=== PATIENT | female | born 1995 | race Caucasian/White ===

== ENCOUNTER → 2019-02-11 | Outpatient (CLI) | payer OTHER ==
[2019-02-11 18:39] LABS: BASO % 0.3 % (0.0-1.0); EOS # 0.2 10^3/uL (0.0-0.5); EOS % 1.3 % (0.0-3.0); HEMATOCRIT 39.4 % (36.0-47.0); HEMOGLOBIN 12.8 g/dl (12.0-15.5); LYMPH # 2.8 10^3/uL (1.5-5.0); LYMPH % 24.1 % (24.0-44.0); MEAN CORPUSCULAR HEMOGLOBIN 29.4 pg (27.0-33.0); MEAN CORPUSCULAR HGB CONC 32.5 g/dl (32.0-36.5); MEAN CORPUSCULAR VOLUME 90.4 fl (80.0-96.0); MONO # 0.9 10^3/uL (0.0-0.8); MONO % 8.2 % (0.0-5.0); NEUTROPHILS # 7.5 10^3/uL (1.5-8.5); NEUTROPHILS % 65.8 % (36.0-66.0); PLATELET COUNT, AUTOMATED 265 10^3/uL (150-450); RED BLOOD COUNT 4.36 10^6/uL (4.00-5.40); WHITE BLOOD COUNT 11.4 10^3/uL (4.0-10.0)
[2019-02-11 19:06] LABS: FREE THYROXINE INDEX 3.7 % (1.3-4.8); T UPTAKE 25 % (30-39); THYROID STIMULATING HORMONE 0.871 uIU/ML (0.358-3.740); THYROXINE (T4) 14.8 UG/DL (4.5-12.0)
[2019-02-11 19:19] LABS: RUBELLA IgG QUALITATIVE IMMUNE (IMMUNE)
[2019-02-11 19:48] LABS: HIV 1&2 SCREEN CENTAUR NEGATIVE (NEGATIVE)
[2019-02-13 11:11] LABS: HEPATITIS C VIRUS ABY INDEX 0.1 INDEX (<0.8)
== END ==
LOC: M SMT 14:19
PROVIDERS: ATTEND Advanced Practice Midwife
DX: Z34.01 Encounter for supervision of normal first pregnancy, first trimester (principal); Z3A.10 10 weeks gestation of pregnancy

== ENCOUNTER → 2019-03-13 | Outpatient (REF) | payer OTHER ==
[2019-03-13 18:58] LABS: CHLAMYDIA DNA AMPLIFICATION POSITIVE (NEGATIVE); GC DNA AMPLIFICATION NEGATIVE (NEGATIVE)
== END ==
LOC: M LAB REF 16:53
PROVIDERS: ATTEND Advanced Practice Midwife
DX: Z34.82 Encounter for supervision of other normal pregnancy, second trimester (principal); Z3A.00 Weeks of gestation of pregnancy not specified

== ENCOUNTER → 2019-04-16 | Outpatient (CLI) | payer OTHER ==
--- NOTE | 2019-04-16 13:20 | REP ---
Clinical: Anatomical evaluation. Comparison: None . Findings: Examination demonstrates a single live intrauterine in cephalic presentation. motion is identified by technologist. Placenta is noted posterior/fundal and grade I without evidence for placenta previa or abruption. Amniotic fluid volume is normal. Cervix measures 3.3 cm in length and appears closed. Nuchal cord cannot be excluded. Gestational age by LMP 20 weeks 3 days with ADRIAN 08/31/2019 . Gestational age by current measurements 19 weeks 4 days with ADRIAN 09/06/2019 . FHR equals 158 beats per minute. BPD 4.5 cm 19 weeks 3 days HC 16.5 cm 19 weeks 2 days AC 13.7 cm 19 weeks 1 day FL 3.2 cm 20 weeks 0 days HL 3.1 cm 20 weeks 1 day HC/AC ratio 1.21 Estimated weight 298 grams ( 18th percentile). Anatomical assessment demonstrates normal structures including cranium, choroid plexus, cavum, lungs, four-chamber heart/ventricular outflow tracts, diaphragm, stomach, cord insertion/three-vessel cord, kidneys/bladder, spine, and extremities. Impression: 1. Single live intrauterine in cephalic presentation demonstrating appropriate interval growth. 2. Nuchal cord cannot be excluded. 3. Limited evaluation of the posterior fossa and facial features may warrant reevaluation and follow-up. Electronically Signed by Roger Tyler MD 04/16/2019 01:11 P
== END ==
LOC: M RAD 12:03
PROVIDERS: ATTEND Obstetrics & Gynecology
DX: Z34.82 Encounter for supervision of other normal pregnancy, second trimester (principal); Z3A.19 19 weeks gestation of pregnancy

== ENCOUNTER → 2019-06-03 | Outpatient (CLI) | payer OTHER ==
--- NOTE | 2019-06-04 02:55 | REP ---
Clinical: Anatomical evaluation. Comparison: 04/16/2019 . Findings: Examination demonstrates a single live intrauterine in cephalic presentation. motion is identified by technologist. Placenta is noted posterior and grade I without evidence for placenta previa or abruption. Amniotic fluid volume is normal. Cervix measures 3.2 cm in length and appears closed. No evidence for nuchal cord. Gestational age by LMP 27 weeks 2 days with ADRIAN 08/31/2019 . Gestational age by first US 27 weeks 2 days with ADRIAN 08/31/2019 . FHR equals 146 beats per minute. Estimated weight 908 grams ( 18th percentile). Anatomical assessment demonstrates normal structures including cranium, choroid plexus, cavum, cerebellum/posterior fossa, facial features, lungs, four-chamber heart/ventricular outflow tracts, diaphragm, stomach, cord insertion/three-vessel cord, kidneys/bladder, spine, and extremities. Impression: Single live intrauterine in cephalic presentation demonstrating appropriate interval growth. In conjunction with prior examination anatomical assessment is complete and normal.
== END ==
LOC: M WHC 09:01
PROVIDERS: ATTEND Advanced Practice Midwife
DX: Z34.92 Encounter for supervision of normal pregnancy, unspecified, second trimester (principal); Z3A.27 27 weeks gestation of pregnancy

== ENCOUNTER → 2019-06-12 | Outpatient (CLI) | payer OTHER ==
[2019-06-12 18:38] LABS: HEMATOCRIT 36.6 % (36.0-47.0); HEMOGLOBIN 11.4 g/dl (12.0-15.5); MEAN CORPUSCULAR HEMOGLOBIN 28.6 pg (27.0-33.0); MEAN CORPUSCULAR HGB CONC 31.1 g/dl (32.0-36.5); PLATELET COUNT, AUTOMATED 277 10^3/uL (150-450); RED BLOOD COUNT 3.98 10^6/uL (4.00-5.40); WHITE BLOOD COUNT 13.2 10^3/uL (4.0-10.0)
== END ==
LOC: M PLALAB 11:51
PROVIDERS: ATTEND Advanced Practice Midwife
DX: Z34.92 Encounter for supervision of normal pregnancy, unspecified, second trimester (principal)

== ENCOUNTER → 2019-08-05 | Outpatient (REF) | payer OTHER | LOC: M LAB REF 16:55 | PROVIDERS: ATTEND Advanced Practice Midwife | DX: Z36.85 Encounter for antenatal screening for Streptococcus B (principal) ==

== ENCOUNTER → 2019-08-05 | Outpatient (REF) | payer OTHER | LOC: M PLALAB 14:31 | PROVIDERS: ATTEND Advanced Practice Midwife | DX: Z34.83 Encounter for supervision of other normal pregnancy, third trimester (principal) ==

== ENCOUNTER 2019-09-11 15:28 | Inpatient (IN) | payer OTHER ==
[~2019-09-11] VITALS: Ht 167.6 cm; Wt 119.7 kg
[2019-09-11] MEDS ORDERED: TUMS750C5 PO (15:57)
[2019-09-11] MEDS ORDERED: LACTATED RINGER'S 1000 ML IV STA (16:19)
--- NOTE | 2019-09-11 16:35 | HPEPDOC ---
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 Past Medical History Medical History anemia Surgical History: Other (dental) Family History Significant Family History: Cancer, Other (anemia, thyroid disease, lupus) Social History Marital Status: Single Family situation: Spouse/partner home Psychosocial History: No pertinent psych hx * Smoker: non-smoker Alcohol: Denies Drugs: denies Abuse Violence Screening Have you been hit/kicked/slapp: No Have you been sexually assault: No Imunizations Tdap status: current Allergies Coded Allergies: wool (Verified Allergy, Mild, 09/11/19) HIVES Medications Scheduled PRN Calcium Carbonate (Tums) 300 Mg Tab.chew, 1 TAB PO Q6HP PRN for INDIGESTION Physical Examination Physical Examination GENERAL: Alert and oriented times three. BREAST: . ABDOMEN: Gravid and non-tender to touch. FETUS: Is vertex (VTX) by sterile vaginal examination (SVE), fetus is vertex (VTX) by Taj. HEART RATE: Regular rate and rhythm. LUNGS: Clear to auscultation (CTA). EXTREMITIES: No edema. No clonus. Deep tendon reflexes (DTRs) + 2. Laboratory Data 24H [facility] Laboratory Tests 2 09/11/19 15:47: Serology Scanned Report Hepatitis B Testing Pertinent Laboratoy Data Blood Type: O+ RBC Antibody Screen: Negative HIV: Negative Hepatitis B: Negative Hepatitis C: Negative Rapid Plasma Reagin: Nonreactive Rubella: Immune Chlamydia/Gonorrhea: Positive (no WILL documented) Group B Streptococcus: Negative Quad Screen Test: Declined Glucose Tolerance Test: 115 Anatomy Ultrasound Ultrasound Date: Apr 16, 2019 Placenta Location: Posterior Normal Anatomy: Yes Placenta Previa: No Estimated Weight (grams): 298 (18%) Other Ultrasounds 02/11/19 dating 10w5d 06/03/19 f/u anatomy wnl efw 908g, 18% Steroid Therapy Steroid Therapy: No Vaginal Examination Dilation: 1cm Effacement: 80% Station: -2 Cervical Consistency: Medium Cervical Position: Posterior Presentation: Cephalic presentation Assessment Heart Rate (FHR): 125 Variability: Moderate Accelerations: Positive Decelerations: None Tocometer Contractions: Yes Frequency: irregular Strength: palpated as mild Assessment/Plan Assessment Agatha is a 24-year-old (G)2 para (P)0-0-1-0 at 41+0 weeks by 10-week ultrasound. Presents to Labor and Delivery (L&D) for postdates induction of labor. Reports irregular mild UC the past few days. Denies LOF, bleeding. Reports good movement. Plan Admit and orient per consult Dr Amaya Axle Turner and consent. Diet: Regular. Group B Streptococcus (GBS) negative. Labs and intravenous (IV) per unit protocol. Counseled on misoprostol, Pitocin and induction of labor (IOL). Lactated Ringers (LR): Bolus 500 mL, then saline lock. Considering epidural. Anticipate normal spontaneous delivery (). C-S as appropriate. Leydi Mayorga CNM September 11, 2019 16:35
[2019-09-11 16:46] LABS: HEMATOCRIT 32.4 % (36.0-47.0); HEMOGLOBIN 10.3 g/dl (12.0-15.5); MEAN CORPUSCULAR HEMOGLOBIN 26.8 pg (27.0-33.0); MEAN CORPUSCULAR HGB CONC 31.8 g/dl (32.0-36.5); MEAN CORPUSCULAR VOLUME 84.4 fl (80.0-96.0); PLATELET COUNT, AUTOMATED 277 10^3/uL (150-450); RED BLOOD COUNT 3.84 10^6/uL (4.00-5.40); WHITE BLOOD COUNT 12.7 10^3/uL (4.0-10.0)
[2019-09-11] MEDS: miSOPROStol 50 MCG 1/2 TAB (S0191) PO SCH ×2 (16:52→21:11)
[2019-09-11 17:02] VITALS: BP 133/66
[2019-09-11 18:00] VITALS: BP 145/79
[2019-09-11 18:02] VITALS: BP 151/78
[2019-09-11 18:05] LABS: CHLAMYDIA DNA AMPLIFICATION NEGATIVE (NEGATIVE); GC DNA AMPLIFICATION NEGATIVE (NEGATIVE)
[2019-09-11 18:51] VITALS: BP 124/72
[2019-09-11 18:54] LABS: ALT/SGPT 10 U/L (12-78); BILIRUBIN,TOTAL 0.1 MG/DL (0.2-1.0); CREATININE FOR GFR 0.81 MG/DL (0.55-1.30); GLOMERULAR FILTRATION RATE > 60.0 (>60); LDH LACTATE DEHYDROGENASE 192 U/L (84-246); URIC ACID 6.9 MG/DL (2.6-6.0)
[2019-09-12] VITALS (16 sets, daily range): BP systolic 123–198; BP diastolic 62–109
[2019-09-12] MEDS: miSOPROStol 50 MCG 1/2 TAB (S0191) PO SCH (01:59)
[2019-09-12 02:30] LABS: TOTAL PROTEIN,RANDOM URINE 30.3 MG/DL (0.0-12.0)
[2019-09-12] MEDS ORDERED: OXYTOCIN DRIP 30 UNITS in IV 1 EA IV SCH (08:30)
[2019-09-12] MEDS ORDERED: LR 1,000 ML IV SCH (10:15)
[2019-09-12] MEDS ORDERED: PROMETHAZINE INJ 25 MG/ML VIAL (J2550) IV ONE (16:15)
[2019-09-12] MEDS ORDERED: BUTORPHANOL 2 MG/ML INJ (J0595) IV ONE (16:15)
[2019-09-12] MEDS ORDERED: FENTANYL 2MCG/ML ROPIVACAINE 0.2% IN 0.9% NACL 100ML IVBAG As Ordered ONE (23:22)
[2019-09-12] MEDS ORDERED: ONDANSETRON 4MG/2ML VIAL IV PRN (23:35)
[2019-09-12] MEDS ORDERED: REFRIGERATOR IV KEYS XX PRN (23:35)
[2019-09-12] MEDS ORDERED: LACTATED RINGER'S 1000 ML IV PRN (23:35)
[2019-09-12] MEDS ORDERED: FENTANYL/ROPIVACAINE/NACL BAG 100 ML EPIDURAL SCH (23:35)
[2019-09-12] MEDS ORDERED: EPIDURAL COMMENT XX SCH (23:35)
[2019-09-12] MEDS ORDERED: EPIDURAL/PCA KEYS XX PRN (23:35)
[2019-09-12] MEDS ORDERED: ePHEDrine SULFATE 25 MG/5 ML(5MG/ML) SYRINGE IV PRN (23:35)
[2019-09-12] MEDS ORDERED: NALOXONE INJ 0.4MG/1ML VIAL (J2310 PER 1MG) IV PRN (23:35)
[2019-09-12] MEDS ORDERED: diphenhydrAMINE 50MG/ML VIAL (J1200) IV PRN (23:35)
[2019-09-13] VITALS (43 sets, daily range): BP systolic 109–166; BP diastolic 56–98
[2019-09-13] MEDS ORDERED: FENTANYL 2MCG/ML ROPIVACAINE 0.2% IN 0.9% NACL 100ML IVBAG As Ordered ONE (06:29)
[2019-09-13] MEDS ORDERED: OXYTOCIN 30 UNITS IN 0.9% NaCl 500ML IV BAG (J2590) As Ordered ONE (08:40)
[2019-09-13] MEDS ORDERED: OXYTOCIN DRIP 30 UNITS in IV 1 EA IV SCH (08:50)
[2019-09-13] MEDS ORDERED: LR 1,000 ML IV SCH (08:50)
[2019-09-13] MEDS ORDERED: miSOPROStol 200 MCG TAB (S0191) PR ONE (09:00)
[2019-09-13] MEDS ORDERED: ONDANSETRON 4MG/2ML VIAL IV PRN (09:00)
[2019-09-13] MEDS ORDERED: DOCUSATE SODIUM 100 MG CAP PO PRN (09:00)
[2019-09-13] MEDS ORDERED: DIBUCAINE 1% OINTMENT 30GM TOP PRN (09:00)
[2019-09-13] MEDS ORDERED: RHOGAM 300 MCG (1500 IU) INJ (J2790) IM SCH (09:00)
[2019-09-13] MEDS ORDERED: ACETAMINOPHEN TAB 650MG DOSE (2X325MG) PO PRN (09:00)
[2019-09-13] MEDS ORDERED: MEASLES,MUMPS,RUBELLA VACCINE INJ (MMR-II) (90707) SC SCH (09:00)
[2019-09-13] MEDS ORDERED: PROMETHAZINE 25 MG TAB PO PRN (09:00)
[2019-09-13] MEDS ORDERED: ACETAMINOPHEN 500 MG TAB PO PRN (09:00)
[2019-09-13] MEDS ORDERED: IBUPROFEN 800 MG TAB PO PRN (09:00)
[2019-09-13] MEDS: PRENATAL VITAMINS CHEWABLE TABLET PO SCH (09:27)
[2019-09-13] MEDS: IBUPROFEN 600 MG TAB PO PRN (19:36)
[2019-09-14 06:00] VITALS: BP 124/60
[2019-09-14] MEDS: PRENATAL VITAMINS CHEWABLE TABLET PO SCH (08:41)
[2019-09-14] MEDS: IBUPROFEN 600 MG TAB PO PRN (10:43)
[2019-09-14 18:05] VITALS: BP 121/57
[2019-09-15 06:18] VITALS: BP 126/66
[2019-09-15] MEDS: PRENATAL VITAMINS CHEWABLE TABLET PO SCH (07:18)
[2019-09-15] MEDS ORDERED: IBUP80TA PO (09:35)
[2019-09-15] MEDS ORDERED: ACET-683 PO (09:35)
== END 2019-09-15 12:05 | disposition home or self-care (01) | DRG 807 ==
LOC: M LDI 15:28 → M OBS 09-13 14:55
PROVIDERS: ADMIT Advanced Practice Midwife; ATTEND Advanced Practice Midwife
PROC: 3E0DXGC Introduction of Other Therapeutic Substance into Mouth and Pharynx, External Approach (ICD-10-PCS; 2019-09-11)
PROC: 3E033VJ Introduction of Other Hormone into Peripheral Vein, Percutaneous Approach (ICD-10-PCS; 2019-09-12)
PROC: 10E0XZZ Delivery of Products of Conception, External Approach (ICD-10-PCS; principal; 2019-09-13)
PROC: 0KQM0ZZ Repair Perineum Muscle, Open Approach (ICD-10-PCS; 2019-09-13)
DX: O48.0 Post-term pregnancy (principal); Z37.0 Single live birth; Z3A.41 41 weeks gestation of pregnancy; O70.1 Second degree perineal laceration during delivery

== ENCOUNTER → 2019-12-21 | Outpatient (REF) | payer OTHER ==
[~2019-12-21] MED LIST: ACET-683 PO; IBUP80TA PO; TUMS750C5 PO
== END ==
LOC: M SFHCWAGY 11:04
PROVIDERS: ATTEND Obstetrics & Gynecology
DX: Z12.4 Encounter for screening for malignant neoplasm of cervix (principal)
CPT/HCPCS: 87624; 87661; G0123

== ENCOUNTER → 2020-02-25 | Outpatient (REF) | payer OTHER | LOC: M PLALAB 09:17 | PROVIDERS: ATTEND Obstetrics & Gynecology | DX: Z34.01 Encounter for supervision of normal first pregnancy, first trimester (principal) ==

== ENCOUNTER → 2020-03-29 | Outpatient (CLI) | payer OTHER | LOC: M PLALAB 11:09 | PROVIDERS: ATTEND Advanced Practice Midwife | DX: Z34.81 Encounter for supervision of other normal pregnancy, first trimester (principal); Z3A.00 Weeks of gestation of pregnancy not specified ==

== ENCOUNTER → 2020-03-29 | Outpatient (REF) | payer OTHER ==
[2020-03-29 13:53] LABS: HEMATOCRIT 38.4 % (36.0-47.0); HEMOGLOBIN 11.5 g/dl (12.0-15.5); MEAN CORPUSCULAR HEMOGLOBIN 24.4 pg (27.0-33.0); MEAN CORPUSCULAR HGB CONC 29.9 g/dl (32.0-36.5); MEAN CORPUSCULAR VOLUME 81.4 fl (80.0-96.0); PLATELET COUNT, AUTOMATED 301 10^3/uL (150-450); RED BLOOD COUNT 4.72 10^6/uL (4.00-5.40); WHITE BLOOD COUNT 10.1 10^3/uL (4.0-10.0)
[2020-03-29 15:08] LABS: HIV 1&2 SCREEN CENTAUR NEGATIVE (NEGATIVE)
[2020-03-29 15:36] LABS: CHLAMYDIA DNA AMPLIFICATION NEGATIVE (NEGATIVE); GC DNA AMPLIFICATION NEGATIVE (NEGATIVE)
== END ==
LOC: M PLALAB 11:08
PROVIDERS: ATTEND Obstetrics & Gynecology
DX: Z34.01 Encounter for supervision of normal first pregnancy, first trimester (principal); Z3A.00 Weeks of gestation of pregnancy not specified